=== PATIENT | male | born 1990 | race Caucasian/White ===

== ENCOUNTER 2017-01-02 13:50 | Emergency (ER) | payer OTHER ==
[~2017-01-02 13:50] MED LIST: CATAFLAM50 MG PO; DENIES HOME MEDS; PRILO PO
== END 2017-01-02 14:01 | disposition home or self-care (01) ==
LOC: ER 13:50
PROC: 2W3SXYZ Immobilization of Right Foot using Other Device (ICD-10-PCS; principal; 2017-01-02)
DX: S96.911A Strain of unspecified muscle and tendon at ankle and foot level, right foot, initial encounter (principal); Z88.8 Allergy status to other drugs, medicaments and biological substances; Z79.899 Other long term (current) drug therapy; W22.8XXA Striking against or struck by other objects, initial encounter
CPT/HCPCS: 73630-RT; 99283

== ENCOUNTER 2017-01-07 15:22 | Emergency (ER) | payer OTHER | END 2017-01-07 18:01 | disposition home or self-care (01) | LOC: ER 15:22 | DX: J40 Bronchitis, not specified as acute or chronic (principal); J98.01 Acute bronchospasm; F17.210 Nicotine dependence, cigarettes, uncomplicated; Z90.49 Acquired absence of other specified parts of digestive tract; Z88.8 Allergy status to other drugs, medicaments and biological substances; Z79.899 Other long term (current) drug therapy | CPT/HCPCS: 71020; 94640; 99285; A9270-GY ==

== ENCOUNTER 2017-04-09 20:41 | Emergency (ER) | payer OTHER ==
[2017-04-09 21:23] LABS: WBC (NOT ORDERED) (RFLEX) 0 (0-5)
[2017-04-09 21:43] LABS: ASCORBIC ACID (UR NOT ORDER) 20 (NEG); BILIRUBIN, URINE NEGATIVE (NEG); ER URINALYSIS TAT 0 Hrs 21 Mins; KETONE, URINE NEGATIVE (NEG); LEUKOCYTE ESTERASE(NOT OR NEG (NEG); NITRITE (URINE) NEG (NEG)
[2017-04-09 23:57] LABS: CHLAMYDIA TRACH PCR NOT DETECTED (NOT DETEC); GC PCR NOT DETECTED (NOT DETECT); SOURCE: MALE URINE
== END 2017-04-09 23:24 | disposition left against medical advice (07) ==
LOC: ER 20:41
PROVIDERS: Nurse Practitioner
DX: N48.89 Other specified disorders of penis (principal); Z53.21 Procedure and treatment not carried out due to patient leaving prior to being seen by health care provider; Z88.8 Allergy status to other drugs, medicaments and biological substances; Z79.899 Other long term (current) drug therapy
CPT/HCPCS: 81001; 87491; 87591